=== PATIENT | female | born 1985 | race Two or more races ===

== ENCOUNTER 2022-07-07 23:14 | Emergency (ER) | payer OTHER ==
[~2022-07-07] VITALS: Ht 165.1 cm; Wt 56.7 kg
[2022-07-07] MEDS ORDERED: SYNTHROID88 MCG PO (23:38)
[2022-07-07] MEDS ORDERED: SLYND4 MG PO (23:39)
[2022-07-07] MEDS ORDERED: LAMICTAL PO (23:39)
[2022-07-08] MEDS ORDERED: GENTAK5 ML OP (02:18)
[2022-07-08] MEDS ORDERED: CLEAR EYES REDN30 ML OP (02:18)
== END 2022-07-08 02:36 | disposition home or self-care (01) ==
LOC: ER 23:14
DX: T15.81XA Foreign body in other and multiple parts of external eye, right eye, initial encounter (principal); X58.XXXA Exposure to other specified factors, initial encounter; Y93.9 Activity, unspecified; Y92.832 Beach as the place of occurrence of the external cause; Y99.9 Unspecified external cause status; E03.9 Hypothyroidism, unspecified